=== PATIENT | male | born 1950 | race Caucasian/White ===

== ENCOUNTER 2016-11-08 13:20 | Day surgery (SDC) | payer MEDICARE ==
[~2016-11-08] VITALS: Ht 177.8 cm; Wt 65.3 kg
[~2016-11-08 13:20] MED LIST: CHILD ASA81 MG PO; FLEXERIL PO; HYZAAR1 TAB PO; LOSARTAN POTASS50 MG PO; MULTIVITAMIN PO; NAPROSYN500 MG PO; SOLU-MEDROL125 MG IM; VITAMIN C500 MG PO; [UNRECOGNIZED DRUG - OTHER] PO
[2016-11-08 15:59] VITALS: BP 135/64
== END 2016-11-08 16:10 | disposition home or self-care (01) ==
LOC: ENDO 13:20 → ORM 18:55
PROVIDERS: ATTEND Internal Medicine Gastroenterology
PROC: 0DBG8ZX Excision of Left Large Intestine, Via Natural or Artificial Opening Endoscopic, Diagnostic (ICD-10-PCS; principal; 2016-11-08)
PROC: 0DBN8ZX Excision of Sigmoid Colon, Via Natural or Artificial Opening Endoscopic, Diagnostic (ICD-10-PCS; 2016-11-08)
PROC: 0DBF8ZX Excision of Right Large Intestine, Via Natural or Artificial Opening Endoscopic, Diagnostic (ICD-10-PCS; 2016-11-08)
PROC: 0W3P8ZZ Control Bleeding in Gastrointestinal Tract, Via Natural or Artificial Opening Endoscopic (ICD-10-PCS; 2016-11-08)
DX: R63.4 Abnormal weight loss (principal); K64.4 Residual hemorrhoidal skin tags; K57.30 Diverticulosis of large intestine without perforation or abscess without bleeding; D12.4 Benign neoplasm of descending colon; D12.2 Benign neoplasm of ascending colon; D12.5 Benign neoplasm of sigmoid colon; I10 Essential (primary) hypertension; K91.840 Postprocedural hemorrhage of a digestive system organ or structure following a digestive system procedure; Y84.8 Other medical procedures as the cause of abnormal reaction of the patient, or of later complication, without mention of misadventure at the time of the procedure

== ENCOUNTER 2017-03-24 09:54 | Inpatient (IN) | payer MEDICARE ==
[~2017-03-24] VITALS: Ht 177.8 cm; Wt 72.0 kg
[2017-03-24 10:41] LABS: HEMATOCRIT 24.8 % (39.0-50.0); HEMOGLOBIN 7.9 g/dl (14.0-18.0); IMMATURE GRANULOCYTES 1.4 % (0.0-1.0); MEAN CELL VOLUME 114.3 fL CALC (80.0-100.0); MEAN CORPUSCULAR HGB 36.4 pG CALC (26.0-32.0); MEAN CORPUSCULAR HGB CONC 31.9 g/L CALC (32.0-36.0); NEUT# 4.82 thou/uL (1.82-7.42); RED BLOOD COUNT 2.17 mill/uL (4.70-6.10); RED CELL DISTRI WIDTH 20.5 % (11.5-15.5)
[2017-03-24 10:48] LABS: ALBUMIN 3.6 g/dL (3.2-5.0); ALKALINE PHOSPHATASE 88 u/l (38-126); ANION GAP 17 (6-22 (CALC)); BILIRUBIN, TOTAL 0.5 mg/dL (0.0-1.4); BUN 21 mg/dL (8-23); BUN/CREATININE RATIO 16 (12-20 (CALC)); CALCIUM 9.8 mg/dL (8.4-10.2); CARBON DIOXIDE 25 mmol/l (22-30); CHLORIDE 106 mmol/l (95-108); CREATININE 1.3 mg/dL (0.7-1.3); GFR 55 ML/MIN (>=60 (CALC)); GFR FOR AFR.AMER. > 60 ML/MIN (>=60 (CALC)); GLUCOSE 107 mg/dL (82-115); POTASSIUM 4.3 mmol/l (3.5-5.1); SGOT/AST 25 u/l (19-48); SGPT/ALT 19 u/l (11-66); SODIUM 144 mmol/l (137-146); TOTAL PROTEIN 8.6 g/dL (6.3-8.2)
[2017-03-24 11:00] LABS: MYOGLOBIN 30 ng/mL (0 - 121)
[2017-03-24 11:05] LABS: PROTHROMBIN TIME 10.8 SECONDS (9.0-12.5)
[2017-03-24 12:14] LABS: URINE BILIRUBIN - DIPSTICK NEGATIVE (NEGATIVE); URINE BLOOD DIPSTICK TRACE-LYSED (NEGATIVE); URINE CLARITY CLEAR; URINE COLOR YELLOW; URINE GLUCOSE - DIPSTICK NEGATIVE (NEGATIVE); URINE KETONE NEGATIVE (NEGATIVE); URINE LEUK ESTERASE NEGATIVE (NEGATIVE); URINE NITRITE - DIPSTICK NEGATIVE (Negative); URINE PROTEIN - DIPSTICK TRACE mg/dL (NEG-TRACE); URINE SPECIFIC GRAVITY <=1.005; URINE UROBILINOGEN - DIPSTICK 0.2 E.U./dL (0.2)
[2017-03-24 19:35] VITALS: BP 111/61
[2017-03-25] VITALS (10 sets, daily range): BP systolic 103–140; BP diastolic 54–90
[2017-03-25 05:47] LABS: ANION GAP 14 (6-22 (CALC)); BUN 22 mg/dL (8-23); BUN/CREATININE RATIO 17 (12-20 (CALC)); CALCIUM 8.5 mg/dL (8.4-10.2); CARBON DIOXIDE 23 mmol/l (22-30); CHLORIDE 108 mmol/l (95-108); CREATININE 1.3 mg/dL (0.7-1.3); GFR 55 ML/MIN (>=60 (CALC)); GFR FOR AFR.AMER. > 60 ML/MIN (>=60 (CALC)); GLUCOSE 91 mg/dL (82-115); POTASSIUM 4.4 mmol/l (3.5-5.1); SODIUM 141 mmol/l (137-146)
[2017-03-25 05:54] LABS: HEMATOCRIT 20.2 % (39.0-50.0); MEAN CELL VOLUME 114.8 fL CALC (80.0-100.0); MEAN CORPUSCULAR HGB 37.5 pG CALC (26.0-32.0); MEAN CORPUSCULAR HGB CONC 32.7 g/L CALC (32.0-36.0); RED BLOOD COUNT 1.76 mill/uL (4.70-6.10); RED CELL DISTRI WIDTH 20.9 % (11.5-15.5)
[2017-03-25 05:58] LABS: HEMOGLOBIN 6.6 g/dl (14.0-18.0)
[2017-03-25] MEDS ORDERED: TYLENOL325 MG PO (13:34)
[2017-03-25] MEDS ORDERED: FE TABS325 MG PO (13:36)
[2017-03-26 04:42] VITALS: BP 118/75
[2017-03-26 05:44] LABS: HEMATOCRIT 22.8 % (39.0-50.0); HEMOGLOBIN 7.5 g/dl (14.0-18.0); IMMATURE GRANULOCYTES 1.6 % (0.0-1.0); MEAN CORPUSCULAR HGB 35.2 pG CALC (26.0-32.0); MEAN CORPUSCULAR HGB CONC 32.9 g/L CALC (32.0-36.0); NEUT# 4.93 thou/uL (1.82-7.42); RED BLOOD COUNT 2.13 mill/uL (4.70-6.10); RED CELL DISTRI WIDTH 25.5 % (11.5-15.5)
[2017-03-26 06:01] LABS: ANION GAP 14 (6-22 (CALC)); BUN 18 mg/dL (8-23); BUN/CREATININE RATIO 14 (12-20 (CALC)); CALCIUM 8.6 mg/dL (8.4-10.2); CARBON DIOXIDE 24 mmol/l (22-30); CHLORIDE 109 mmol/l (95-108); CREATININE 1.3 mg/dL (0.7-1.3); GFR 55 ML/MIN (>=60 (CALC)); GFR FOR AFR.AMER. > 60 ML/MIN (>=60 (CALC)); GLUCOSE 92 mg/dL (82-115); POTASSIUM 4.2 mmol/l (3.5-5.1); SODIUM 142 mmol/l (137-146)
[2017-03-26 08:04] VITALS: BP 105/61
[2017-03-26 11:24] VITALS: BP 132/65
[2017-03-26 16:44] VITALS: BP 131/72
[2017-03-26 18:50] VITALS: BP 125/66
[2017-03-26 23:15] VITALS: BP 150/80
[2017-03-27 04:05] VITALS: BP 100/59
[2017-03-27 05:48] LABS: HEMOGLOBIN 7.5 g/dl (14.0-18.0); IMMATURE GRANULOCYTES 2.6 % (0.0-1.0); MEAN CELL VOLUME 106.5 fL CALC (80.0-100.0); MEAN CORPUSCULAR HGB 34.7 pG CALC (26.0-32.0); MEAN CORPUSCULAR HGB CONC 32.6 g/L CALC (32.0-36.0); NEUT# 6.68 thou/uL (1.82-7.42); RED BLOOD COUNT 2.16 mill/uL (4.70-6.10)
[2017-03-27 05:50] LABS: ANION GAP 15 (6-22 (CALC)); BUN 20 mg/dL (8-23); BUN/CREATININE RATIO 16 (12-20 (CALC)); CALCIUM 8.7 mg/dL (8.4-10.2); CARBON DIOXIDE 21 mmol/l (22-30); CHLORIDE 110 mmol/l (95-108); CREATININE 1.3 mg/dL (0.7-1.3); GFR 55 ML/MIN (>=60 (CALC)); GFR FOR AFR.AMER. > 60 ML/MIN (>=60 (CALC)); GLUCOSE 138 mg/dL (82-115); POTASSIUM 4.6 mmol/l (3.5-5.1); SODIUM 141 mmol/l (137-146)
[2017-03-27 08:00] VITALS: BP 139/71
[2017-03-27] MEDS ORDERED: PREDNISONE10 MG PO (10:33)
[2017-03-27] MEDS ORDERED: IPRATROPIU0.5 MG/3 M IN (10:33)
[2017-03-27] MEDS ORDERED: FLORASTOR250 M1 PO (10:33)
[2017-03-27] MEDS ORDERED: LEVAQUIN750 MG PO (11:06)
== END 2017-03-27 15:04 | disposition home or self-care (01) | DRG 194 ==
LOC: ED 09:54 → ED-I 12:51 → ED 13:31 → MS2 13:32
PROVIDERS: Emergency Medicine; ADMIT Internal Medicine; ATTEND Internal Medicine
PROC: 3E0234Z Introduction of Serum, Toxoid and Vaccine into Muscle, Percutaneous Approach (ICD-10-PCS; principal; 2017-03-25)
PROC: 30233N1 Transfusion of Nonautologous Red Blood Cells into Peripheral Vein, Percutaneous Approach (ICD-10-PCS; 2017-03-25)
DX: J18.9 Pneumonia, unspecified organism (principal); C74.00 Malignant neoplasm of cortex of unspecified adrenal gland; C78.00 Secondary malignant neoplasm of unspecified lung; F17.210 Nicotine dependence, cigarettes, uncomplicated; I10 Essential (primary) hypertension; D64.81 Anemia due to antineoplastic chemotherapy; T45.1X5A Adverse effect of antineoplastic and immunosuppressive drugs, initial encounter; D69.6 Thrombocytopenia, unspecified; Z23 Encounter for immunization
CPT/HCPCS: J3370; P9016; Q9967

== ENCOUNTER 2017-06-13 12:59 | Inpatient (IN) | payer MEDICARE ==
[~2017-06-13] VITALS: Ht 177.8 cm; Wt 59.1 kg
[~2017-06-13 12:59] MED LIST changes: +FE TABS325 MG PO; +FLORASTOR250 M1 PO; +IPRATROPIU0.5 MG/3 M IN; +LEVAQUIN750 MG PO; +PREDNISONE10 MG PO; +TYLENOL325 MG PO
[2017-06-13 14:16] LABS: HEMOGLOBIN 7.2 g/dl (14.0-18.0); IMMATURE GRANULOCYTES 1.7 % (0.0-1.0); MEAN CELL VOLUME 116.2 fL CALC (80.0-100.0); MEAN CORPUSCULAR HGB 36.4 pG CALC (26.0-32.0); MEAN CORPUSCULAR HGB CONC 31.3 g/L CALC (32.0-36.0); PLATELET COUNT 298 thou/uL (130-400); RED BLOOD COUNT 1.98 mill/uL (4.70-6.10); RED CELL DISTRI WIDTH 22.8 % (11.5-15.5)
[2017-06-13] MEDS ORDERED: HYDROCO/APAP1 TA9 PO (14:21)
[2017-06-13 14:36] LABS: ALBUMIN 3.1 g/dL (3.2-5.0); ALKALINE PHOSPHATASE 164 u/l (38-126); ANION GAP 15 (6-22 (CALC)); BILIRUBIN, TOTAL 0.3 mg/dL (0.0-1.4); BUN 38 mg/dL (8-23); BUN/CREATININE RATIO 30 (12-20 (CALC)); CALCIUM 9.5 mg/dL (8.4-10.2); CARBON DIOXIDE 25 mmol/l (22-30); CHLORIDE 104 mmol/l (95-108); CREATININE 1.3 mg/dL (0.7-1.3); GFR 55 ML/MIN (>=60 (CALC)); GFR FOR AFR.AMER. > 60 ML/MIN (>=60 (CALC)); GLUCOSE 126 mg/dL (82-115); POTASSIUM 4.4 mmol/l (3.5-5.1); SGOT/AST 26 u/l (19-48); SGPT/ALT 13 u/l (11-66); SODIUM 139 mmol/l (137-146); TOTAL PROTEIN 6.9 g/dL (6.3-8.2)
[2017-06-13 14:44] LABS: MYOGLOBIN 67 ng/mL (0 - 121)
[2017-06-13 14:53] LABS: BAND 33 % (0-8); MANUAL DIFFERENTIAL YES
[2017-06-13 23:21] VITALS: BP 99/56
== END 2017-06-13 23:20 | disposition short-term general hospital (02) | DRG 194 ==
LOC: ED 12:59 → ED-I 14:53 → ED 15:39 → MS2 15:40 → ICU 19:21
PROVIDERS: Emergency Medicine; ADMIT Internal Medicine; ATTEND Internal Medicine
PROC: 5A09357 Assistance with Respiratory Ventilation, Less than 24 Consecutive Hours, Continuous Positive Airway Pressure (ICD-10-PCS; principal; 2017-06-13)
DX: J18.9 Pneumonia, unspecified organism (principal); C34.90 Malignant neoplasm of unspecified part of unspecified bronchus or lung; F17.210 Nicotine dependence, cigarettes, uncomplicated; Z79.899 Other long term (current) drug therapy; Z87.01 Personal history of pneumonia (recurrent)